=== PATIENT | female | born 1995 | race Caucasian/White ===

== ENCOUNTER 2019-08-17 06:53 | Inpatient (IN) | payer BC, SELFPAY ==
[2019-08-17] VITALS (140 sets, daily range): BP systolic 80–142; BP diastolic 31–97; PULSE 60–121; RESP 16–20; TEMP 36.6–37.3; O2SAT 92–100; BMI 33.7
[2019-08-17 07:24] LABS: Basophils Percent Auto 0.5 % (0.2-1.2); Eosinophils Absolute Auto 0.1 K/mm3 (0-0.3); Hematocrit 36.6 % (37.0-47.0); Hemoglobin 12.1 g/dL (12.0-15.0); Immature Granulocyte Absolute 0.05 K/mm3 (0.00-0.031); Immature Granulocyte Percent A 0.6 % (0-0.5); Lymphocytes Absolute Auto 2.04 K/mm3 (0.9-3.2); Lymphocytes Percent Auto 24.2 % (18.3-44.2); Mean Corpuscular HGB Conc 33.1 g/dl (32-36); Mean Corpuscular Hemoglobin 28.5 pg (26-34); Mean Corpuscular Volume 86.3 fl (80-100); Mean Platelet Volume 9.4 fl (7.4-10.4); Monocytes Absolute Auto 0.7 K/mm3 (0.1-0.6); Monocytes Percent Auto 7.7 % (2.6-8.5); Neutrophils Absolute Auto 5.6 K/mm3 (1.3-6.7); Platelet Count Result 250 k/mm3 (150-375); Red Blood Count 4.24 M/mm3 (4.2-5.4); Red Cell Distribution Width 13.1 % (11.5-14.5); White Blood Count 8.4 K/mm3 (4.5-10.0)
[2019-08-17] MEDS: LACTATED RINGERS 1,000 ML 125 ML IV CONT ×2 (07:29→18:36)
[2019-08-17] MEDS: OXYTOCIN 30 UNITS/NS 500 ML 30 UNITS/500 ML BAG IV CONT (07:30)
[2019-08-17] MEDS: AMPICILLIN 2 GM/NS 100 ML 2 GM/100 ML BAG IVPB (07:30)
--- NOTE | 2019-08-17 07:32 | LDADM ---
This patient, Hamida Mahmood, was admitted to Labor/Delivery/Recovery 109 on 08/17/19 at 06:53. Plans for labor, pain management and were discussed with patient. Patient/family oriented to hospital policies and general routines including ID bracelet, bed and alarms, visiting hours, pain management, procedures, bathroom and other care routines, personal items, smoking policy, room service/diet and guest tray routines, security routines, and visiting hours. Patient/Family are encouraged to report perceived risks to care and to ask questions if they do not understand what they are told or what they should do. See OBIX for further documentation.
--- NOTE | 2019-08-17 07:41 | WPDOBADMIT ---
Obstetrics - Admit Note Admission Note: record reviewed. No pertinent additions to the history and/or any subsequent changes in the physical findings that are not consistent with the expected course of the were found. MIL, GBS +, anticipate vaginal delivery Additions to the history and/or subsequent changes in the physical findings follow. None.
--- NOTE | 2019-08-17 11:10 | PM.OBPNLAB ---
Pain Control Date/time seen: 08/17/19 11:10 VSS and afebrile Contractions regular FHR category 1 Cervix 3/50/-2 AROM moderate amount of clear odorless fluid Anticipate
[2019-08-17] MEDS: AMPICILLIN 1 GM/NS 50 ML 1 GM/50 ML BAG IVPB ×2 (11:31→15:22)
--- NOTE | 2019-08-17 18:04 | WPDANESEPP ---
Anes - Eval Pre Procedure Procedure: Labor epidural Date/Time: 08/17/19 18:04 Surgeon: Debra Preop Diagnosis: Abd pain with contractions Pre Op Diagnosis: Induction of Labor Patient Data Age: 23 Gender: F Height: Weight: Last Vital Signs Temp 99.2 F 08/17/19 17:30 Pulse 84 08/17/19 18:01 BP 125/73 08/17/19 18:01 Pulse Ox 100 08/17/19 17:59 Allergies Allergy/AdvReac Type Severity Reaction Status Date / Time No Known Allergies Allergy Verified 07/31/19 15:43 Home Medications Medication Instructions Recorded Confirmed Type PNV cmb#95-ferrous fumarate-FA 1 tablet PO DAILY 07/31/19 08/17/19 History [] ferrous sulfate 140 mg PO DAILY 07/31/19 08/17/19 History Laboratory Tests 08/17/19 08/17/19 08/17/19 07:07 07:07 07:07 WBC 8.4 K/mm3 K/mm3 (4.5-10.0) RBC 4.24 M/mm3 M/mm3 (4.2-5.4) Hgb 12.1 g/dL g/dL (12.0-15.0) Hct 36.6 % L % (37.0-47.0) MCV 86.3 fl fl (80-100) MCH 28.5 pg pg (26-34) MCHC 33.1 g/dl g/dl (32-36) RDW 13.1 % % (11.5-14.5) Plt Count 250 k/mm3 k/mm3 (150-375) MPV 9.4 fl fl (7.4-10.4) Immature Gran % (Auto) 0.6 % H % (0-0.5) Neut % (Auto) 66.0 % % (45.5-73.1) Lymph % (Auto) 24.2 % % (18.3-44.2) [place] % (Auto) 7.7 % % (2.6-8.5) Eos % (Auto) 1.0 % % (0-4.4) Baso % (Auto) 0.5 % % (0.2-1.2) Lymph # (Auto) 2.04 K/mm3 K/mm3 (0.9-3.2) [place] # (Auto) 0.7 K/mm3 H K/mm3 (0.1-0.6) Eos # (Auto) 0.1 K/mm3 K/mm3 (0-0.3) Baso # (Auto) 0.0 K/mm3 K/mm3 (0.0-0.1) Abs Immat Gran (auto) 0.05 K/mm3 H K/mm3 (0.00-0.031) Absolute Neuts (auto) 5.6 K/mm3 K/mm3 (1.3-6.7) Absolute Nucleated RBC 0.0 K/mm3 K/mm3 (0.0-0.012) Nucleated RBC % 0.0 % % (0.0-0.2) RPR Pending Blood Type O Positive Antibody Screen Positive Antibody Identification Inconclusive Antigen Identification Cancelled BRENDA, IgG Interpret Not Performed BRENDA, Poly Interpret Negative BRENDA, Complement Interp Not Performed Patient hx anesthesia problems: none Family hx anesthesia problems: none PMFSH Past Medical History Medical History and not yet delivered UTI (urinary tract infection) Family History Family History Mother Fatty liver Father Hypertension Grandparent Diabetes mellitus High cholesterol Hypertension Cancer Social History Social History Smoking status: Never smoker Substance use: never Spiritual care concerns: No Exam Day of Procedure 08/17/19 18:04 Patient weight: overweight Airway: Mallampati scale class II Neurological: alert and oriented
--- NOTE | 2019-08-17 19:21 | PM.OBPRVD ---
OB - Delivery Note Procedure Delivery date: 08/17/19 Induction method: per pitocin protocol Delivery monitor: external FHT and external uterine Route of delivery: Episiotomy description: None Laceration description: None Estimated blood loss (mL): [address] [place] Baby Date of : 08/17/19 Time of : 19:08 Weeks of gestation at delivery: 39 Weight (pounds): 7 Weight (ounces): 3 presentation: vertex position: Right Occiput Anterior Placenta delivery description: Spontaneous cord vessel description: Nuchal Cord, Loose and Reduced score one minute: 9 score five minutes: 9
[2019-08-17] MEDS: OXYTOCIN 30 UNITS/NS 500 ML 30 UNITS/500 ML BAG 125 UNITS IV CONT (19:43)
[2019-08-17] MEDS: MISOPROSTOL 200 MCG TABLET 800 MCG (20:24)
[2019-08-17] MEDS: IBUPROFEN 600 MG TABLET PO (21:47)
[2019-08-17] MEDS: WITCH HAZEL 40 PADS 1 PAD TOPICAL (22:13)
[2019-08-17] MEDS: BENZOCAINE 20% AER SPR (*SP) 56 GM CAN 1 SPRAY TOPICAL (22:13)
[2019-08-18 05:38] LABS: Hematocrit 24.2 % (37.0-47.0); Hemoglobin 8.1 g/dL (12.0-15.0)
[2019-08-18] MEDS: IBUPROFEN 600 MG TABLET PO ×2 (08:42→16:20)
[2019-08-18] MEDS: POLYSACCHARIDE IRON COMPLEX 150 MG CAPSULE PO ×2 (08:42→16:21)
[2019-08-18] MEDS: DOCUSATE SODIUM 100 MG CAPSULE PO ×2 (08:42→16:21)
[2019-08-18] MEDS: MULTIVIT/MIN/PREN/FOL AC/IRON TABLET 1 TAB PO (08:42)
[2019-08-18] MEDS: LANOLIN (LANSINOH) 7.5 GM CREAM 1 APPLIC TOPICAL (08:43)
--- NOTE | 2019-08-18 09:48 | PM.OBPNVD ---
OB - PN: Subj Subjective Date/time seen: 08/18/19 09:48 OB - PN: Obj Data Labs CBC & Chem 7: 08/18/19 05:23 Labs: Laboratory Results - last 24 hr 08/17/19 08/18/19 07:07 05:23 Hgb 8.1 L D Hct 24.2 L Blood Type O Positive Antibody Screen Positive Antibody Identification Inconclusive Antigen Identification Cancelled BRENDA, IgG Interpret Not Performed BRENDA, Poly Interpret Negative BRENDA, Complement Interp Not Performed OB - PN A/P Plan day: 1 Plan: routine care Comments: Repeat H&H this afternoon. Time Spent With Patient Time: Total time spent is greater than 50% in coordination of care (as documented) at patient's floor/unit and/or counseling patient: Review of Systems Review of Systems: All systems reviewed & are unremarkable except as noted in HPI and below Exam Narrative: Exam Narrative: Fundus firm and vaginal flow controlled & light. Denies fatigue, dizziness, or decreased energy. Const: General: comfortable Chest: Breast/axilla inspection: normal inspection of the breasts Resp: Effort & Inspection: normal respiratory effort Cardio: Rate: regular rate Psych: Appearance: grossly normal Affect: normal affect Attitude: cooperative Judgement: Good judgement present (Psych)
[2019-08-18 10:00] VITALS: BP 105/65; PULSE 18; RESP 99; TEMP 36.9
[2019-08-18] MEDS: ACETAMINOPHEN 325 MG TABLET 650 MG PO (12:09)
[2019-08-18 17:43] LABS: Hematocrit 25.4 % (37.0-47.0); Hemoglobin 8.6 g/dL (12.0-15.0)
[2019-08-18 20:40] VITALS: BP 108/70; PULSE 96; RESP 14; TEMP 36.5; O2SAT 100
[2019-08-19 07:15] VITALS: BP 101/60; PULSE 73; RESP 16; TEMP 36.5; O2SAT 99
[2019-08-19] MEDS: MULTIVIT/MIN/PREN/FOL AC/IRON TABLET 1 TAB PO (07:27)
[2019-08-19] MEDS: POLYSACCHARIDE IRON COMPLEX 150 MG CAPSULE PO (07:28)
[2019-08-19] MEDS: IBUPROFEN 600 MG TABLET PO (07:28)
[2019-08-19] MEDS: DOCUSATE SODIUM 100 MG CAPSULE PO (07:28)
--- NOTE | 2019-08-19 09:05 | PM.OBDSVD ---
DS: Diagnosis Discharge Diagnosis (1) Vaginal delivery: Code(s): O80 - Encounter for full-term uncomplicated delivery Status: Acute OB - DS: Summary OB Procedures : None OB Procedures Intrapartum: Spontaneous Vag Delivery OB Procedures: : None Time Spent with Patient Time attestation: Total time spent providing and/or coordinating discharge services: Exam Narrative: Exam Narrative: Fundus firm and vaginal flow controlled. Const: General: comfortable Cardio: Rate: regular rate Psych: Appearance: grossly normal Affect: normal affect Attitude: cooperative Thought content: Yes Normal thought content present Judgement: Good judgement present (Psych) DS: Data Data Completed and Pending Labs on day of discharge: Labs from last 24 hours 08/18/19 17:33 Hgb 8.6 L Hct 25.4 L Discharge Plan Discharge Attending physician on discharge: Jacquie Boyer Discharging Clinician: Jacquie Boyer Patient Disposition: Home, Self-Care Activity: pelvic rest Diet: as tolerated Patient Instructions: Antibiotic Form Stand Alone Forms: General Discharge Information Follow-up/Referrals: Jacquie Boyer CNM [Certified Nurse Warehouse Operations Manager] - Discharge Medications: Continued ferrous sulfate 140 mg (45 mg iron) Tablet Extended Release 140 mg PO DAILY RF: 0 PNV cmb#95-ferrous fumarate-FA [] 28 mg iron- 800 mcg Tablet 1 tablet PO DAILY RF: 0 Date of admission: 08/17/19 06:53 Primary Care Provider: UNKNOWN,DOCTOR Admitting Provider: Hodan Richardson Attending physician on admission: Hodan Richardson
[2019-08-20 07:06] LABS: Rapid Plasma Reagin Non-Reactive (NonReactive)
[2019-08-21 14:25] VITALS: BP 109/76; PULSE 92; RESP 16; TEMP 37.1; O2SAT 100
== END 2019-08-19 12:35 | disposition home or self-care (01) | DRG 807 ==
LOC: ANHLDR 06:56 → ANHOB2 22:38
PROVIDERS: Advanced Practice Midwife; Admitting Provider Obstetrics & Gynecology; Visit Provider Obstetrics & Gynecology
DX: O99.824 Streptococcus B carrier state complicating childbirth (principal); Z37.0 Single live birth; Z3A.39 39 weeks gestation of pregnancy; O69.82X0 Labor and delivery complicated by other cord entanglement, without compression, not applicable or unspecified
CPT/HCPCS: 36415; 85014; 85018; 85025; 86592; 86850; 86880; 86900; 86901; A9270; J0290; J2590; J3010; J7120

== ENCOUNTER → 2021-04-28 09:53 | Outpatient (CLI) | payer OTHER, BC, SELFPAY ==
--- NOTE | ~2021-04-28 | CT_ITS ---
EXAMINATION: CT abdomen pelvis w con EXAM DATE: 04/28/2021 10:19 INDICATION: Abdominal pain . Diarrhea and nausea. TECHNIQUE: Spiral CT of the abdomen and pelvis was performed following intravenous injection of 100 m L Omnipaque 350. Axial, coronal and sagittal images of the abdomen and pelvis were reviewed. The do se-length product (DLP) for this examination was 656.83 mGy-cm. The exposure was tailored according to patient size (auto mA exposure control), and iterative reconstruction (ASIR) was used as additiona l dose reduction technique. There is no prior study for comparison. FINDINGS: Small free pelvic fluid. The liver, spleen, adrenal glands and pancreas are unremarkable. Gallbladder is unremarkable. No biliary obstruction. Portal and splenic veins are patent. Kidneys enhance symmetrically. There is no hydronephrosis. The uterus and ovaries are unremarkable, no ad nexal mass. The bladder is unremarkable. There is no retroperitoneal or pelvic lymphadenopathy. The appendix is normal. The stomach and small bowel are unremarkable. There is moderate amount of c olonic stool. No free intraperitoneal gas. The heart is normal in size. There are no pericardial or pleural effusions. The lung bases are unremarkable. The bones are unremarkable. IMPRESSION: 1. No acute intra-abdominal findings. Reviewed, dictated and finalized at location A. [employer]
== END ==
DX: R10.9 Unspecified abdominal pain (principal)
CPT/HCPCS: 74177; Q9967

== ENCOUNTER 2021-10-11 14:41 | Emergency (ER) | payer BC, SELFPAY ==
--- NOTE | ~2021-10-11 | XR_ITS ---
EXAM: XR abdomen/kub 1V DATE: 10/11/2021 15:23 HISTORY: LT SIDED ABD. PAIN . COMPARISON: None available. FINDINGS: Clear lung bases. Normal bowel gas pattern. No organomegaly. No abnormal abdominal calcifi cation. Regional bones and soft tissues normal for age. IMPRESSION: No radiographic evidence of obstruction or ileus. Reviewed, dictated and finalized at location K.
[2021-10-11 14:50] VITALS: BP 97/73; PULSE 68; RESP 16; TEMP 36.2; O2SAT 100
--- NOTE | 2021-10-11 14:50 | ED.ABDPAIN ---
HPI - Abdominal Pain General Chief Complaint: Abdominal Pain Stated Complaint: Abdominal Pain Time Seen by Provider: 10/11/21 14:50 Source: patient Mode of arrival: ambulatory Limitations: no limitations History of Present Illness HPI narrative: 25-year-old female presents with complaint of left lower abdominal pain for several days. Reports that pain to left lower side increases when having a bowel movement or urinating. No other symptoms. States that she has having normal bowel movements. Has not had a period in 5 months and does not know why. 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 States her has had a vasectomy so she is not . Reports that she had similar pain several months ago. Saw her PCP regarding pain and had a CT scan. Was told that it was normal. States that she is having pain again and is here for a second opinion. Patient is not in any distress. All systems reviewed and negative except as noted above. Related Data Home Medications Medication Instructions Recorded Confirmed No Home Medications 10/11/21 10/11/21 Allergies Allergy/AdvReac Type Severity Reaction Status Date / Time No Known Allergies Allergy Verified 10/11/21 14:52 Review of Systems Review of Systems: CONSTITUTIONAL: Denies fever, chills, or sweats. EYES: Denies visual changes, redness, or discharge. ENT: Denies rhinorrhea, congestion, sore throat, or otalgia. CARDIOVASCULAR: Denies chest pain, palpitations, or edema. RESPIRATORY: Denies cough or dyspnea. GASTROINTESTINAL: Reports left-sided lower abdominal pain. Denies nausea, vomiting, or diarrhea. GENITOURINARY: Denies dysuria or hematuria. SKIN: Denies rash or itching. MUSCULOSKELETAL: Denies back pain, joint pain, or myalgia. NEUROLOGIC: Denies headache, numbness, or weakness. PSYCHIATRIC: Denies anxiety or depression. All other systems reviewed are negative, except as documented in HPI. [facility] Past Medical History Medical History (Updated 10/11/21 @ 15:44 by Iva Arizmendi NP) and not yet delivered UTI (urinary tract infection) Family History Family History Mother Fatty liver Father Hypertension Grandparent Diabetes mellitus High cholesterol Hypertension Cancer Social History Social History Smoking status: Never smoker Substance use: never Spiritual care concerns: No Comments At time of signature, agree with nursing past medical, surgical, social and family history. There is no relevant family history pertinent to the presenting complaint. Exam Narrative: GENERAL: This is a well-nourished, well-developed patient, in no apparent distress. HEAD: normocephalic, atraumatic. EYES: PERRL. Sclera clear/white. Vision is grossly intact. EARS: External ears normal NOSE: External nose normal NECK: Neck supple, non-tender without lymphadenopathy, masses or thyromegaly. CARDIOVASCULAR: Regular rate and rhythm without murmurs, gallops, or rubs. RESPIRATORY: Clear to auscultation. Breath sounds equal bilaterally. No wheezes, rales, or rhonchi. GASTROINTESTINAL: Abdomen soft, n generalized tenderness, no point tenderness. No guarding or rebound tenderness. nondistended. Bowel sounds are active. No hepato-splenomegaly, or palpable masses. No guarding. SKIN: warm, Dry, intact with no suspicious lesions or rash, good texture and turgor. NEURO: awake, alert, and oriented to person, place and time. There were no obvious focal neurologic abnormalities. EXTREMITIES: No joint tenderness, effusion, or edema noted. Course Course Level of Care: Express Care Visit Vital Signs Vital signs: Vital Signs Temperature 36.2 C L 10/11/21 14:50 Pulse Rate 68 10/11/21 14:50 Respiratory Rate 16 10/11/21 14:50 Blood Pressure 97/73 L 10/11/21 14:50 Pulse Oximetry 100 10/11/21 14:50 Oxygen Delivery Room Air 10/11/21 14
== END 2021-10-11 15:48 | disposition home or self-care (01) ==
PROVIDERS: Emergency Provider Nurse Practitioner Family; PCP Family Medicine
DX: R10.9 Unspecified abdominal pain (principal)
CPT/HCPCS: 74018; 81003; 81025; 99213; G0463

== ENCOUNTER 2022-02-28 12:31 | Emergency (ER) | payer BC, SELFPAY ==
[2022-02-28 13:14] VITALS: BP 112/73; PULSE 87; RESP 18; TEMP 36; O2SAT 100
--- NOTE | 2022-02-28 14:33 | ED.URI ---
HPI - URI/Sore Throat General Chief Complaint: Upper Respiratory Infection Stated Complaint: Sore Throat Time Seen by Provider: 02/28/22 14:33 Source: patient Mode of arrival: ambulatory Limitations: no limitations History of Present Illness HPI Narrative: 26-year-old female presents with complaint of nasal congestion, cough, runny nose, sore throat for 3 weeks. Reports that she got sick from her children who are now feeling better. Afebrile. Taking [id number] DayQuil NyQuil cold and Sinus and symptoms are improving. Denies shortness of breath and chest pain. States throat is really sore . all systems reviewed and negative except as noted above. Related Data Home Medications Medication Instructions Recorded Confirmed escitalopram oxalate 20 mg tablet 20 mg PO DAILY 02/28/22 02/28/22 medroxyprogesterone 10 mg tablet 10 mg PO DAILY 02/28/22 02/28/22 Allergies Allergy/AdvReac Type Severity Reaction Status Date / Time No Known Allergies Allergy Verified 02/28/22 14:36 Review of Systems Review of Systems: CONSTITUTIONAL: Denies fever, chills, or sweats. EYES: Denies visual changes, redness, or discharge. ENT: Reports rhinorrhea, congestion, sore throat, or otalgia. CARDIOVASCULAR: Denies chest pain, palpitations, or edema. RESPIRATORY: reports cough. Denies dyspnea. GASTROINTESTINAL: Denies abdominal pain, nausea, vomiting, or diarrhea. GENITOURINARY: Denies dysuria or hematuria. SKIN: Denies rash or itching. MUSCULOSKELETAL: Denies back pain, joint pain, or myalgia. NEUROLOGIC: Denies headache, numbness, or weakness. PSYCHIATRIC: Denies anxiety or depression. All other systems reviewed are negative, except as documented in HPI. [facility] Past Medical History Medical History (Updated 02/28/22 @ 15:16 by Iva Arizmendi NP) and not yet delivered UTI (urinary tract infection) Family History Family History Mother Fatty liver Father Hypertension Grandparent Diabetes mellitus High cholesterol Hypertension Cancer Social History Social History Smoking status: Never smoker Substance use: never Spiritual care concerns: No Comments At time of signature, agree with nursing past medical, surgical, social and family history. There is no relevant family history pertinent to the presenting complaint. Exam Narrative: GENERAL: This is a well-nourished, well-developed patient, in no apparent distress. HEAD: normocephalic, atraumatic. EYES: PERRL. Sclera clear/white. Vision is grossly intact. EARS: External ears normal, auditory canals clear and without drainage, clear fluid bilateral TMs NOSE: External nose normal with clear nasal drainage, erythema to both nares. Maxillary sinus tenderness bilaterally. THROAT: Mucous membranes moist, Erythema posterior pharynx with clear postnasal drainage. NECK: Neck supple, non-tender without lymphadenopathy, masses or thyromegaly. CARDIOVASCULAR: Regular rate and rhythm without murmurs, gallops, or rubs. RESPIRATORY: Clear to auscultation. Breath sounds equal bilaterally. No wheezes, rales, or rhonchi. SKIN: warm, Dry, intact with no suspicious lesions or rash, good texture and turgor. NEURO: awake, alert, and oriented to person, place and time. There were no obvious focal neurologic abnormalities. EXTREMITIES: No joint tenderness, effusion, or edema noted. Course Course Level of Care: Express Care Visit Vital Signs Vital signs: Vital Signs Temperature 36.0 C L 02/28/22 13:14 Pulse Rate 87 02/28/22 13:14 Respiratory Rate 18 02/28/22 13:14 Blood Pressure 112/73 02/28/22 13:14 Pulse Oximetry 100 02/28/22 13:14 Oxygen Delivery Room Air 02/28/22 13:14 Temperature 36.0 C L 02/28/22 13:14 Pulse Rate 87 02/28/22 13:14 Respiratory Rate 18 02/28/22 13:14 Blood Pressure 112/73 02/28/22 13:14
== END 2022-02-28 15:36 | disposition home or self-care (01) ==
PROVIDERS: Emergency Provider Nurse Practitioner Family; PCP Family Medicine
DX: J01.90 Acute sinusitis, unspecified (principal)
CPT/HCPCS: 87081; 87804; 87880; 99213; G0463